=== PATIENT | male | born 1970 | race Caucasian/White ===

== ENCOUNTER 2022-01-21 22:30 | Emergency (ER) | payer OTHER ==
[2022-01-21] MEDS: HYDROmorphone 2 MG/ML SDV IM ONE (22:50)
[2022-01-21] MEDS: Glucagon,Human Recombinant 1 MG Vial IV ONE (23:00)
[2022-01-21] MEDS: Ondansetron 4 MG/2 ML SDV IVPUSH ONE (23:00)
[2022-01-21 23:29] LABS: TROPONIN I HIGH SENSITIVITY 28.7 pg/ml (<=60.4)
[2022-01-21] MEDS: HYDROmorphone 2 MG/ML SDV IVPUSH ONE (23:47)
[2022-01-22] MEDS: Ondansetron 4 MG/2 ML SDV IVPUSH PRN (01:25)
[2022-01-22] MEDS: HYDROmorphone 2 MG/ML SDV IVPUSH PRN (01:30)
[2022-01-22] MEDS: Metoclopramide 10 MG/2 ML SDV IV ONE (01:38)
== END 2022-01-22 01:50 ==
LOC: LB.ED 22:30
DX: T18.128A Food in esophagus causing other injury, initial encounter (principal); I10 Essential (primary) hypertension
CPT/HCPCS: 36415; 71250; 74176; 80053; 83690; 84484; 85025; 93005; 96372; 96374; 96375; 96376; 99284; J1170; J1610; J2405; J2765